=== PATIENT | male | born 1985 | race Caucasian/White ===

== ENCOUNTER 2017-02-15 10:19 | Emergency (ER) | payer OTHER ==
[~2017-02-15] VITALS: Ht 175.3 cm; Wt 77.0 kg
[~2017-02-15 10:19] MED LIST: IBUP800T23 PO; SUBO8MIS SL
[2017-02-15 10:20] VITALS: BP 120/72; PULSE 92; RESP 18; TEMP 97.4; O2SAT 94
[2017-02-15] MEDS ORDERED: SUBO8MIS SL (10:33)
--- NOTE | 2017-02-15 10:47 | PD ---
HPI Chief Complaint: Cold / Flu Symptoms Time Seen by Provider: 10:44 Travel History International Travel<30 days: No Contact w/Intl Traveler<30days: No Traveled to known affect area: No History of Present Illness HPI Patient is a 31-year-old male presenting to emergency for evaluation of cough, sore throat, nasal and chest congestion. Patient states his symptoms started a week ago, he reports a fever several days ago but none since. He denies any nausea, vomiting, abdominal pain, chest pain, headaches. Patient states his cough is productive, he is coughing up clear to yellow sputum. Patient endorses daily tobacco use, he denies any history of asthma. He has no other complaints at this time. 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) Allergies-Medications (Allergen,Severity, Reaction): Coded Allergies: No Known Allergies (Unverified , 11/23/15) Reported Meds & Prescriptions Reported Meds & Active Scripts Active Reported Suboxone Sublingual Film (Buprenorphine-Naloxone Sublingual Film) 8-2 Mg Film 1 Film SL Unique ID number required: Review of Systems Except as stated in HPI: all other systems reviewed are Neg General / Constitutional: No: Fever, Chills HENT: Positive: Sore Throat, Rhinitis, Congestion Cardiovascular: No: Chest Pain or Discomfort Respiratory: Positive: Cough, Wheezing, No: Shortness of Breath Gastrointestinal: No: Nausea, Vomiting, Abdominal Pain Musculoskeletal: No: Myalgias Physical Exam Narrative GENERAL: Well-nourished, well-developed patient. SKIN: Warm and dry. HEAD: Normocephalic. EYES: No scleral icterus. No injection or drainage. ENT: Mucosa pink and moist. No erythema or exudates. No uvular edema. No uvular , palatal, or tonsillar deviation. Airway patent. Nasal turbinates appear normal without nasal blood, purulent drainage or septal hematoma. Cobblestone appearance to posterior pharynx. NECK: Supple, trachea midline. No JVD or lymphadenopathy. CARDIOVASCULAR: Regular rate and rhythm without murmurs, gallops, or rubs. RESPIRATORY: Breath sounds equal bilaterally. Coarse breath sounds in bases, with scattered expiratory wheezing. No increased work of breathing, no nasal flaring, no retractions. GASTROINTESTINAL: Abdomen soft, non-tender, nondistended. MUSCULOSKELETAL: No cyanosis, or edema. BACK: Nontender without obvious deformity. No CVA tenderness. Data Data Last Documented VS Vital Signs Date Time Temp Pulse Resp B/P Pulse Ox O2 Delivery O2 Flow Rate FiO2 02/15/17 10:20 97.4 92 18 120/72 94 Room Air Orders Chest, Single Ap (02/15/17 10:43) Albuterol-Ipratropium Neb (Duoneb Neb) (02/15/17 10:45) Methylprednisolone So Succ Inj (Solumedr (02/15/17 11:00) MDM Medical Decision Making Medical Screen Exam Complete: Yes Emergency Medical Condition: Yes Interpretation(s) Last Impressions Chest X-Ray 02/15/17 1043 Signed Impressions: Service Date/Time: Wednesday, February 15, 2017 10:50 - CONCLUSION: No acute cardiopulmonary process. Nash Nation MD Vital Signs Date Time Temp Pulse Resp B/P Pulse Ox O2 Delivery O2 Flow Rate FiO2 02/15/17 10:20 97.4 92 18 120/72 94 Room Air Differential Diagnosis Pneumonia versus bronchitis versus viral URI versus other Narrative Course Patient is a 31-year-old male presenting to emergency for evaluation of cough, chest congestion, nasal congestion, sore throat for the last week. Patient is a daily tobacco user. Imaging and nebulizers ordered and pending. Chest x-ray shows no acute disease patient reports improvement after duo nebs 3. Patient was advised to avoid further tobacco use. He was given prescriptions for Ventolin inhaler, steroids, antibiotics. He was encouraged to return to emergency department for any new or worsening symptoms. Additionally he was advised to follow-up with his primary care provider. Patient verbalized understanding of these instructions. Patient is stable for discharge. Diagnosis Primary Impression: Bronchitis, acute Qualified Code: J20.9 - Acute bronchitis, unspecified organism Referrals: Primary Care Physician Patient Instructions: Acute Bronchitis (ED), General Instructions Additional Instructions: Follow-up with a primary care doctor Return to emergency department for any new or worsening symptoms Take medications as directed Avoid smoking Med/Other Pt SpecificInfo: Prescription(s) given Scripts Prednisone 20 Mg Tab40 Mg PO DAILY 7 Days Ref 0 Take 40 mg (2 tablets) daily for 5 days Prov:Melisa Haney 02/15/17 Albuterol 18 GM Inh (Ventolin Hfa 18 GM Inh)90 Mcg/Act Aer2 Puff INH Q4-6H PRN ( SHORTNESS OF BREATH) #1 INHALER Ref 0 Prov:Melisa Haney 02/15/17 Azithromycin 250 Mg [id number] Mg PO DIRECTED #6 TAB Ref 0 Take 2 tabs (500 mg) on day 1 then 1 tab daily x 4 days. Prov:Melisa Haney 02/15/17 Disposition: 01 DISCHARGE HOME Condition: Stable Melisa Haney Feb 15, 2017 10:47
[2017-02-15] MEDS ORDERED: methylPREDNISolone SOD SUCC 125 MG/2 ML VIAL IM ONE (11:00)
[2017-02-15] MEDS: RESP: ALBUTEROL 2.5 MG/IPRATROPIUM 0.5 MG NEB (SCH) INH (11:12)
--- NOTE | 2017-02-15 11:18 | RADRPT ---
EXAM DATE/TIME: 02/15/2017 10:50 [facility] COMPARISON: No previous studies available for comparison. INDICATIONS : Patient has had a productive cough for a week. MEDICAL HISTORY : None. SURGICAL HISTORY : None. ENCOUNTER: Initial ACUITY: 1 week PAIN SCORE: 0/10 LOCATION: Bilateral chest FINDINGS: A single view of the chest demonstrates the lungs to be symmetrically aerated without evidence of mas s, infiltrate or effusion. The cardiomediastinal contours are unremarkable. Osseous structures are intact. CONCLUSION: No acute cardiopulmonary process. Nash Nation MD on February 15, 2017 at 11:16 Board Certified Radiologist. This report was verified electronically.
[2017-02-15 12:06] VITALS: O2SAT 95
[2017-02-15] MEDS ORDERED: PRED20 PO (12:10)
[2017-02-15] MEDS ORDERED: AZIT250T3 PO (12:10)
[2017-02-15] MEDS ORDERED: VENTAER INH (12:10)
== END 2017-02-15 12:22 | disposition home or self-care (01) ==
LOC: NEPB 10:19
DX: J20.9 Acute bronchitis, unspecified (principal); F17.210 Nicotine dependence, cigarettes, uncomplicated
CPT/HCPCS: 71010; 94664; 96372; 99283; J2930

== ENCOUNTER 2018-02-28 06:13 | Inpatient (IN) | payer SELFPAY ==
[2018-02-28] VITALS (11 sets, daily range): BP systolic 106–131; BP diastolic 60–80; PULSE 75–114; RESP 15–23; TEMP 97.2–99.8; O2SAT 96–100
[~2018-02-28] VITALS: Ht 175.3 cm; Wt 75.0 kg
[~2018-02-28 06:13] MED LIST changes: +AZIT250T3 PO; -IBUP800T23 PO; +PRED20 PO; +VENTAER INH
[2018-02-28] MEDS ORDERED: SODIUM CHLOR 0.9% 1000 ML INJ 1,000 ML IV ONE ×2 (06:48)
[2018-02-28] MEDS ORDERED: SODIUM CHLOR 0.9% 1000 ML INJ 400 ML IV ONE (06:48)
[2018-02-28] MEDS ORDERED: PIPERACIL-TAZO 3.375 GM PREMIX 50 ML IV ONE (07:00)
[2018-02-28] MEDS ORDERED: VANCOMYCIN INJ 1,000 MG in SODIUM CHLOR 0.9% 250 ML INJ 250 ML IV ONE (07:00)
--- NOTE | 2018-02-28 07:00 | PD ---
HPI Chief Complaint: Skin Problem Time Seen by Provider: 06:34 Travel History International Travel<30 days: No Contact w/Intl Traveler<30days: No Traveled to known affect area: No History of Present Illness HPI The patient is a 32 year old male who presents to the [facility] emergency department with a history of left arm swelling that began that began 2-3 days ago. The patient reports that he last injected IV heroin in the left arm approximately 3-4 days ago. He reports that he last used heroin in the right arm at 2 AM today. The patient reports that he has had a subjective fever, chills, however no nausea, vomiting, or diarrhea. His last bowel movement was yesterday. He reports that he has a history of hepatitis C, however he denies any prior history of endocarditis. The patient denies having any chest pain, chest pressure, or shortness of breath. The patient reports that he has also used cocaine in the past, however infrequently. On review of systems otherwise , the patient denies having any cough or congestion, neck pain, abdominal pain, vomiting, diarrhea, urinary symptoms, or neurologic symptoms. The patient arrives drowsy on examination, having difficulty staying awake to answer questions. [facility] Past Medical History Narrative Medical The patient's past medical history is significant for IV heroin use, history of hepatitis C. Cancer: No Cardiovascular Problems: No Endocrine: No Gastrointestinal Disorders: No Genitourinary: No Medical other: Yes (HEP C ) Musculoskeletal: No Neurologic: No Psychiatric: No Respiratory: No Past Surgical History Narrative Surgical The patient's past surgical history is significant for right hand surgery related to middle finger injury in childhood. Other Surgery: No Social History Alcohol Use: No Tobacco Use: Yes (1 pack per day) Substance Use: Yes (IV heroin, history of cocaine use) Allergies-Medications (Allergen,Severity, Reaction): Coded Allergies: No Known Allergies (Unverified Adverse Reaction, Unknown, 02/28/18) Reported Meds & Prescriptions Reported Meds & Active Scripts Active No Active Prescriptions or Reported Medications Review of Systems Except as stated in HPI: all other systems reviewed are Neg General / Constitutional: Positive: Fever, Chills Eyes: No: Visual changes HENT: No: Headaches Cardiovascular: No: Chest Pain or Discomfort, Dyspnea on exertion Respiratory: No: Shortness of Breath Gastrointestinal: No: Nausea, Vomiting, Diarrhea, Abdominal Pain Genitourinary: No: Dysuria Musculoskeletal: No: Pain Skin: Positive Rash Neurologic: Positive: Weakness (Generalized weak), No: Focal Abnormalities, Change in Mentation, Slurred Speech, Sensory Disturbance Psychiatric: No: Depression Endocrine: No: Polydipsia Hematologic/Lymphatic: No: Easy Bruising Physical Exam Narrative General: The patient is a well-developed well-nourished male, drowsy on examination although easily awakened. Head and Neck exam: Head is normocephalic atraumatic. Eyes: EOMI, pupils are equal round and reactive to light. Nose: Midline septum with pink mucous membranes Mouth: Dentition unremarkable. Moist mucus membranes. Posterior oropharynx is not erythematous. No tonsillar hypertrophy. Uvula midline. Airway patent. Neck: No palpable lymphadenopathy. No nuchal rigidity. No thyromegaly. Cardiovascular: Sinus tachycardia in the 1 teens without murmurs, gallops, or rubs. No pulse deficit to the extremities on simultaneous auscultation and palpation of his radial artery. Lungs: Clear to auscultation bilaterally. No wheezes, rhonchi, or rales. Abdomen: Soft, without tenderness to palpation in all 4 quadrants of the abdomen. No guarding, rebound, or rigidity. Normal bowel sounds are audible. No tenderness on palpation of McBurney's point. Negative Rodriguez sign. Extremities: No clubbing, cyanosis, or edema, except in the area of interest, the left upper extremity where the patient has significant edema compared to the right with erythema most prominent along the lateral aspect of the arm above the elbow with a weeping area over the middle aspect of the lateral portion of the arm. A wound culture was ordered. There is a significant amount of induration over the musculature of the lateral arm, however the compartments do remain soft. The patient has left axillary lymphadenopathy noted. 2+ pulses in all 4 extremities. The patient has full range of motion with flexion and extension of the wrist. The patient has full range of motion of his fingers with intact sensation over all fingertips. Back: No spinous process tenderness to palpation. No costovertebral angle tenderness to palpation. Neurologic Exam: Cranial nerves 2-12 were intact on exam. Strength is 5/5 in all 4 extremities. No sensory deficits noted. Drowsy on examination. The patient frequently falls asleep while answering questions, however otherwise neurologically intact. Skin Exam: The patient is noted to have track aponte over bilateral upper extremities. Intact skin that is warm and dry. Data Data Last Documented VS Vital Signs Date Time Temp Pulse Resp B/P (MAP) Pulse Ox O2 Delivery O2 Flow Rate FiO2 02/28/18 06:13 99.6 114 18 129/73 (91) 98 Orders Orders Electrocardiogram (02/28/18 06:48) Complete Blood Count With Diff (02/28/18 06:48) Comprehensive Metabolic Panel (02/28/18 06:48) Creatine Kinase (Cpk) (02/28/18 06:48) Ckmb (Isoenzyme) Profile (02/28/18 06:48) Troponin I (02/28/18 06:48) Prothrombin Time / Inr (Pt) (02/28/18 06:48) Act Partial Throm Time (Ptt) (02/28/18 06:48) Blood Culture (02/28/18 06:48) Urinalysis - C+S If Indicated (02/28/18 06:48) Westergren Sedimentation Rate (02/28/18 06:48) Magnesium (Mg) (02/28/18 06:48) Chest, Single Ap (02/28/18 06:48) Iv Access Insert/Monitor (02/28/18 06:48) Ecg Monitoring (02/28/18 06:48) Oximetry (02/28/18 06:48) Lactic Acid Sepsis Protocol (02/28/18 06:48) Us Soft Tissue (02/28/18 ) Sodium Chlor 0.9% 1000 Ml Inj (Ns 1000 M (02/28/18 06:48) Sodium Chlor 0.9% 1000 Ml Inj (Ns 1000 M (02/28/18 06:48) Sodium Chlor 0.9% 1000 Ml Inj (Ns 1000 M (02/28/18 06:48) Piperacil-Tazo 3.375 Gm Premix (Zosyn 3. (02/28/18 07:00) Vancomycin Inj (Vancomycin Inj) (02/28/18 07:00) MDM Medical Decision Making Medical Screen Exam Complete: Yes Emergency Medical Condition: Yes Medical Record Reviewed: Yes Differential Diagnosis Cellulitis, versus myositis, versus rhabdomyolysis, versus abscess, versus sepsis Narrative Course During the course of the patient's emergency department visit, the patient's history, examination, and differential diagnosis were reviewed with the patient. The patient was placed on a financial planning assistant with oximetry and frequent blood pressure monitoring. The patient had IV access obtained and blood work sent for analysis. The patient had blood cultures 2 ordered, lactic acid per sepsis protocol was ordered. The patient appears septic on examination, therefore the patient was started on 30 mL/kg IV fluid bolus. The patient will be given vancomycin 1 g IV, Zosyn 3.375 g IV. The patient's laboratory studies and imaging studies are pending at the conclusion of my shift. The patient's case will be checked out to the oncoming emergency physician to disposition the patient based on the conclusion of his workup. The patient will clearly need to be admitted to the hospital for continued IV antibiotic and incision and drainage of a large abscess involving the left lateral arm. Sepsis Criteria SIRS Criteria (2 or more): Heart rate over 90 Sepsis Criteria (SIRS+source): Infect source susp/known Diagnosis Primary Impression: Cellulitis Qualified Codes: L03.114 - Cellulitis of left upper limb Scripts No Active Prescriptions or Reported Meds Liseth Ramesh MD Feb 28, 2018 07:00
[2018-02-28 07:19] LABS: AUTOMATED NEUTROPHIL # 9.5 TH/MM3 (1.8-7.7); BASOPHIL # 0.1 TH/MM3 (0-0.2); BASOPHIL % 0.5 % (0.0-2.0); EOSINOPHIL # 0.2 TH/MM3 (0-0.4); EOSINOPHIL % 1.8 % (0.0-4.0); HEMATOCRIT 36.6 % (39.0-51.0); HEMOGLOBIN 12.8 GM/DL (13.0-17.0); LYMPH % 16.7 % (9.0-44.0); LYMPHOCYTE # 2.2 TH/MM3 (1.0-4.8); MEAN CELL VOLUME 86.2 FL (80.0-100.0); MEAN CORPUSCULAR HEMOGLOBIN 30.1 PG (27.0-34.0); MEAN CORPUSCULAR HGB CONC 34.9 % (32.0-36.0); MEAN PLATELET VOLUME 7.3 FL (7.0-11.0); MONO % 7.9 % (0.0-8.0); NEUT % 73.1 % (16.0-70.0); PLATELET COUNT 192 TH/MM3 (150-450); RED BLOOD COUNT 4.24 MIL/MM3 (4.50-5.90); RED CELL DISTRIBUTION WIDTH 13.1 % (11.6-17.2)
--- NOTE | 2018-02-28 07:24 | RADRPT ---
EXAM DATE/TIME: 02/28/2018 07:12 [facility] COMPARISON: CHEST SINGLE AP, February 15, 2017, 10:50. INDICATIONS : Palpitations. MEDICAL HISTORY : None. SURGICAL HISTORY : None. ENCOUNTER: Initial ACUITY: 2 days PAIN SCORE: 0/10 LOCATION: Bilateral chest FINDINGS: Low lung volumes which accentuate interstitial markings. No significant focal pleural or parenchymal opacities. Cardiomediastinal contours are within normal limits given technique. Remainder of the exam is unchanged. CONCLUSION: 1. No acute abnormality or significant interval change. Calixto Plascencia MD on February 28, 2018 at 7:21 Board Certified Radiologist. This report was verified electronically.
[2018-02-28 07:27] LABS: INTERNATIONAL NORMALIZED RATIO 1.1 RATIO; PROTHROMBIN TIME - PATIENT 11.2 SEC (9.8-11.6)
[2018-02-28 07:49] LABS: ALBUMIN 3.2 GM/DL (3.4-5.0); AST (GOT) 61 U/L (15-37); BICARBONATE 28.7 MEQ/L (21.0-32.0); BLOOD UREA NITROGEN 9 MG/DL (7-18); CALCIUM 8.6 MG/DL (8.5-10.1); CHLORIDE 97 MEQ/L (98-107); CREATININE 1.03 MG/DL (0.60-1.30); GLOMERULAR FILTRATION RATE 84 ML/MIN (>89); GLUCOSE,RANDOM 83 MG/DL (74-106); MAGNESIUM 1.9 MG/DL (1.5-2.5); SODIUM (NA) 134 MEQ/L (136-145)
[2018-02-28 07:50] LABS: ALT (GPT) 84 U/L (12-78)
[2018-02-28 07:53] LABS: ALKALINE PHOSPHATASE 147 U/L (45-117); TOTAL BILIRUBIN ADULT 0.7 MG/DL (0.2-1.0); TOTAL PROTEIN 8.7 GM/DL (6.4-8.2); TROPONIN I LESS THAN 0.02 NG/ML (0.02-0.05)
--- NOTE | 2018-02-28 08:48 | RADRPT ---
EXAM DATE/TIME: 02/28/2018 07:49 [facility] COMPARISON: No previous studies available for comparison. INDICATIONS : Abscess in left arm. MEDICAL HISTORY : Hepatitis C. IV heroin use. SURGICAL HISTORY : Right hand surgery. ENCOUNTER: Initial ACUITY: 1 day PAIN SCORE: Nonresponsive. LOCATION: Left arm. AREA EVALUATED: Left lateral mid humerus. FINDINGS: MASSES: None. FLUID COLLECTIONS: There is a complex subcutaneous fluid collection in the left lateral mid humerus region measuring 4.2 x 3.8 x 3.9 cm. OTHER: Negative. CONCLUSION: 1. 4.2 x 3.8 x 3.9 cm subcutaneous abscess in the left lateral mid humerus. 1. Calixto Plascencia MD on February 28, 2018 at 8:31 Board Certified Radiologist. This report was verified electronically.
--- NOTE | 2018-02-28 10:12 | PD ---
Physical Exam Narrative Patient signed out to me by Dr. Ramesh. Please see her documentation for complete details. Briefly, patient is a 32 year old male who comes in with a large abscess and large surrounding cellulitis after injecting heroine into his arm. Exam shows large swelling to he left upper extremity with large area of fluctuance. Data Data Last Documented VS Vital Signs Date Time Temp Pulse Resp B/P (MAP) Pulse Ox O2 Delivery O2 Flow Rate FiO2 02/28/18 09:23 99.1 75 15 106/67 (80) 99 Room Air Orders Orders Electrocardiogram (02/28/18 06:48) Complete Blood Count With Diff (02/28/18 06:48) Comprehensive Metabolic Panel (02/28/18 06:48) Creatine Kinase (Cpk) (02/28/18 06:48) Ckmb (Isoenzyme) Profile (02/28/18 06:48) Troponin I (02/28/18 06:48) Prothrombin Time / Inr (Pt) (02/28/18 06:48) Act Partial Throm Time (Ptt) (02/28/18 06:48) Blood Culture (02/28/18 06:48) Urinalysis - C+S If Indicated (02/28/18 06:48) Westergren Sedimentation Rate (02/28/18 06:48) Magnesium (Mg) (02/28/18 06:48) Chest, Single Ap (02/28/18 06:48) Iv Access Insert/Monitor (02/28/18 06:48) Ecg Monitoring (02/28/18 06:48) Oximetry (02/28/18 06:48) Lactic Acid Sepsis Protocol (02/28/18 06:48) Us Soft Tissue (02/28/18 ) Sodium Chlor 0.9% 1000 Ml Inj (Ns 1000 M (02/28/18 06:48) Sodium Chlor 0.9% 1000 Ml Inj (Ns 1000 M (02/28/18 06:48) Sodium Chlor 0.9% 1000 Ml Inj (Ns 1000 M (02/28/18 06:48) Piperacil-Tazo 3.375 Gm Premix (Zosyn 3. (02/28/18 07:00) Vancomycin Inj (Vancomycin Inj) (02/28/18 07:00) Wound Culture And Gram Stain (02/28/18 06:57) CKMB (02/28/18 07:05) CKMB% (02/28/18 07:05) Admit Order (Ed Use Only) (02/28/18 ) Labs Laboratory Tests Test 02/28/18 07:05 White Blood Count 13.0 TH/MM3 Red Blood Count 4.24 MIL/MM3 Hemoglobin 12.8 GM/DL Hematocrit 36.6 % Mean Corpuscular Volume 86.2 FL Mean Corpuscular Hemoglobin 30.1 PG Mean Corpuscular Hemoglobin Concent 34.9 % Red Cell Distribution Width 13.1 % Platelet Count 192 TH/MM3 Mean Platelet Volume 7.3 FL Neutrophils (%) (Auto) 73.1 % Lymphocytes (%) (Auto) 16.7 % Monocytes (%) (Auto) 7.9 % Eosinophils (%) (Auto) 1.8 % Basophils (%) (Auto) 0.5 % Neutrophils # (Auto) 9.5 TH/MM3 Lymphocytes # (Auto) 2.2 TH/MM3 Monocytes # (Auto) 1.0 TH/MM3 Eosinophils # (Auto) 0.2 TH/MM3 Basophils # (Auto) 0.1 TH/MM3 CBC Comment DIFF FINAL Differential Comment Erythrocyte Sedimentation Rate 63 mm/hr Prothrombin Time 11.2 SEC Prothromb Time International Ratio 1.1 RATIO Activated Partial Thromboplast Time 31.0 SEC Blood Urea Nitrogen 9 MG/DL Creatinine 1.03 MG/DL Random Glucose 83 MG/DL Total Protein 8.7 GM/DL Albumin 3.2 GM/DL Calcium Level 8.6 MG/DL Magnesium Level 1.9 MG/DL Alkaline Phosphatase 147 U/L Aspartate Amino Transf (AST/SGOT) 61 U/L Alanine Aminotransferase (ALT/SGPT) 84 U/L Total Bilirubin 0.7 MG/DL Sodium Level 134 MEQ/L Potassium Level 3.4 MEQ/L Chloride Level 97 MEQ/L Carbon Dioxide Level 28.7 MEQ/L Anion Gap 8 MEQ/L Estimat Glomerular Filtration Rate 84 ML/MIN Lactic Acid Level 1.6 mmol/L Total Creatine Kinase 263 U/L Creatine Kinase MB LESS THAN 0.5 NG/ML Troponin I LESS THAN 0.02 NG/ML MDM Supervised Visit with NADER: No Narrative Course US shows a large abscess that will need to be drained surgically. Patient given antibiotics and admitted for further management. Diagnosis Primary Impression: Cellulitis Qualified Codes: L03.114 - Cellulitis of left upper limb Admitting Information Admitting Physician Requests: Admit Scripts No Active Prescriptions or Reported Meds Mavis Kate MD Feb 28, 2018 10:12
--- NOTE | 2018-02-28 10:26 | HHI.HP ---
HPI Service Family Medicine Primary Care Physician No Primary Care Physician Admission Diagnosis abscess, cellulitis Diagnoses: International Travel<30 Days: No Contact w/Intl Traveler<30days: No Known Affected Area: No History of Present Illness Mr. Hsu is a 32-year-old white male with a past medical history of IV drug abuse and hepatitis C that presented to the ED for a left arm abscess. He stated that he injected heroin into his left arm 2 days ago and an abscess "popped up." He stated that he could not take the pain anymore so he is friend dropped him off at the hospital. Patient was intoxicated so was unable to get a full history. He stated that he last used heroin last night and injected into his right arm. He stated that he has had abscesses in the past. Denies history of endocarditis or lung infection. Has had fevers and chills over the past few days. He has also felt weak. He also admitted to using methamphetamine for the past 4 days and has been without sleep for the same amount of time. (Tatianna Porter MD R1) Review of Systems ROS Limitations: Intoxication Constitutional: COMPLAINS OF: Fever, Chills Respiratory: DENIES: Shortness of breath Cardiovascular: COMPLAINS OF: Chest pain (top left) (Tatianna Porter MD R1) Past Family Social History Past Medical History Hepatitis C- diagnosed 10 years ago Does not have a PCP Past Surgical History none (Tatianna Porter MD R1) Allergies: Coded Allergies: No Known Allergies (Unverified Adverse Reaction, Unknown, 02/28/18) Family History father- healthy mother- healthy Social History Lives in a motel Unemployed No alcohol, smokes ppd Admits to using heroin and methamphetamine (Tatianna Porter MD R1) Physical Exam Vital Signs Vital Signs Date Time Temp Pulse Resp B/P (MAP) Pulse Ox O2 Delivery O2 Flow Rate FiO2 02/28/18 09:23 99.1 75 15 106/67 (80) 99 Room Air 02/28/18 07:22 99.8 85 18 114/70 (85) 100 Room Air 02/28/18 07:18 17 98 Room Air 02/28/18 06:45 99.3 114 23 131/77 (95) 98 02/28/18 06:13 99.6 114 18 129/73 (91) 98 Physical Exam GENERAL: This is a well-nourished, well-developed patient lying on bed drowsy, in no apparent distress. SKIN: Left upper lateral arm showed large area of erythema and warmth. Erythema extended from apex of shoulder down to the elbow. Area was demarcated with a marker. An area of fluctuance of about 3 x 3 cm draining serous fluid was noted at the area of the deltoid. The area was also indurated. HEAD: Atraumatic. Normocephalic. EYES: Extraocular motions intact. No scleral icterus. No injection or drainage. ENT: Nose without bleeding, purulent drainage or septal hematoma. Airway patent. NECK: Trachea midline. No JVD or lymphadenopathy. Supple. CARDIOVASCULAR: Regular rate and rhythm without murmurs, gallops, or rubs. RESPIRATORY: Clear to auscultation. Breath sounds equal bilaterally. No wheezes , rales, or rhonchi. GASTROINTESTINAL: Abdomen soft, non-tender, nondistended. No hepato-splenomegaly , or palpable masses. No guarding. MUSCULOSKELETAL: Extremities without clubbing, cyanosis, or edema. No joint tenderness, effusion, or edema noted. No calf tenderness. NEUROLOGICAL: Awake and alert. Motor and sensory grossly within normal limits. Slurred speech. Laboratory Laboratory Tests Test 02/28/18 07:05 White Blood Count 13.0 Red Blood Count 4.24 Hemoglobin 12.8 Hematocrit 36.6 Mean Corpuscular Volume 86.2 Mean Corpuscular Hemoglobin 30.1 Mean Corpuscular Hemoglobin Concent 34.9 Red Cell Distribution Width 13.1 Platelet Count 192 Mean Platelet Volume 7.3 Neutrophils (%) (Auto) 73.1 Lymphocytes (%) (Auto) 16.7 Monocytes (%) (Auto) 7.9 Eosinophils (%) (Auto) 1.8 Basophils (%) (Auto) 0.5 Neutrophils # (Auto) 9.5 Lymphocytes # (Auto) 2.2 Monocytes # (Auto) 1.0 Eosinophils # (Auto) 0.2 Basophils # (Auto) 0.1 CBC Comment DIFF FINAL Differential Comment Erythrocyte Sedimentation Rate 63 Prothrombin Time 11.2 Prothromb Time International Ratio 1.1 Activated Partial Thromboplast Time 31.0 Blood Urea Nitrogen 9 Creatinine 1.03 Random Glucose 83 Total Protein 8.7 Albumin 3.2 Calcium Level 8.6 Magnesium Level 1.9 Alkaline Phosphatase 147 Aspartate Amino Transf (AST/SGOT) 61 Alanine Aminotransferase (ALT/SGPT) 84 Total Bilirubin 0.7 Sodium Level 134 Potassium Level 3.4 Chloride Level 97 Carbon Dioxide Level 28.7 Anion Gap 8 Estimat Glomerular Filtration Rate 84 Lactic Acid Level 1.6 Total Creatine Kinase 263 Creatine Kinase MB LESS THAN 0.5 Troponin I LESS THAN 0.02 Date/Time Source Procedure Growth Status 02/28/18 06:57 Blood Peripheral Aerobic Blood Culture Pending Received 02/28/18 06:57 Blood Peripheral Anaerobic Blood Culture Pending Received 02/28/18 06:57 Wound Arm Gram Stain Pending Received 02/28/18 06:57 Wound Arm Wound Culture Pending Received (Tatianna Porter MD R1) Result Diagram: 02/28/18 0705 02/28/18 0705 Imaging Last Impressions Chest X-Ray 02/28/18 0648 Signed Impressions: Service Date/Time: Wednesday, February 28, 2018 07:12 - CONCLUSION: 1. No acute abnormality or significant interval change. Calixto Plascencia MD Soft Tissue Ultrasound 02/28/18 0000 Signed Impressions: Service Date/Time: Wednesday, February 28, 2018 07:49 - CONCLUSION: 1. 4.2 x 3.8 x 3.9 cm subcutaneous abscess in the left lateral mid humerus. 1. Calixto Plascencia MD (Tatianna Porter MD R1) Caprini VTE Risk Assessment Caprini VTE Risk Assessment: No/Low Risk (score <= 1) Caprini Risk Assessment Model Point Value = 1 Point Value = 2 Point Value = 3 Point Value = 5 Age 41-60 Minor surgery BMI > 25 kg/m2 Swollen legs Varicose veins or History of unexplained or recurrent spontaneous Oral contraceptives or hormone replacement Sepsis (< 1 month) Serious lung disease, including pneumonia (< 1 month) Abnormal pulmonary function Acute myocardial infarction Congestive heart failure (< 1 month) History of inflammatory bowel disease Medical patient at bed rest Age 61-74 Arthroscopic surgery Major open surgery (> 45 min) Laparoscopic surgery (> 45 min) Malignancy Confined to bed (> 72 hours) Immobilizing plaster cast Central venous access Age >= 75 History of VTE Family history of VTE Factor V Leiden Prothrombin [id number] Lupus anticoagulant Anticardiolipin antibodies Elevated serum homocysteine Heparin-induced thrombocytopenia Other congenital or acquired thrombophilia Stroke (< 1 month) Elective arthroplasty Hip, pelvis, or leg fracture Acute spinal cord injury (< 1 month) Prophylaxis Regimen Total Risk Factor Score Risk Level Prophylaxis Regimen 0-1 Low Early ambulation 2 Moderate Order ONE of the following: *Sequential Compression Device (SCD) *Heparin 5000 units SQ BID 3-4 Higher Order ONE of the following medications: *Heparin 5000 units SQ TID *Enoxaparin/Lovenox 40 mg SQ daily (WT < 150 kg, CrCl > 30 mL/min) *Enoxaparin/Lovenox 30 mg SQ daily (WT < 150 kg, CrCl > 10-29 mL/min) *Enoxaparin/Lovenox 30 mg SQ BID (WT < 150 kg, CrCl > 30 mL/min) AND/OR *Sequential Compression Device (SCD) 5 or more Highest Order ONE of the following medications: *Heparin 5000 units SQ TID (Preferred with Epidurals) *Enoxaparin/Lovenox 40 mg SQ daily (WT < 150 kg, CrCl > 30 mL/min) *Enoxaparin/Lovenox 30 mg SQ daily (WT < 150 kg, CrCl > 10-29 mL/min) *Enoxaparin/Lovenox 30 mg SQ BID (WT < 150 kg, CrCl > 30 mL/min) AND *Sequential Compression Device (SCD) (Tatianna Porter MD R1) Assessment and Plan Assessment and Plan 32-year-old white male with a past medical history of IV drug abuse and hepatitis C presenting with a left upper lateral arm abscess and cellulitis. He is being admitted to our inpatient service. Code Status Full code Discussed Condition With Drs. Camarena and Charles (Tatianna Porter MD R1) Attending Attestation Patient seen and examined. Case reviewed and discussed with the resident team. Agree with plan of care as discussed with me and documented in the resident note. pt seen on admission. agree with plan. discussed quitting drugs. he is considering this (Niecy Soto MD) Problem List: (1) Cellulitis of left arm ICD Codes: L03.114 - Cellulitis of left upper limb Status: Acute Plan: Patient with left upper lateral arm abscess of 2 days' duration after injecting heroin. Afebrile upon admission, but tachycardic to the 110s. Leukocytosis neutrophil predominate to 13.0. ESR elevated at 63. Soft tissue ultrasound on admission, 02/28, shows 4.2 x 3.8 x 3.9 cm subcutaneous abscess in the left lateral mid humerus. Wound culture pending Blood culture pending UDS positive for opiates, amphetamines, benzodiazepines, and cocaine Patient given a dose of vancomycin 1000 mg in the ED -Will continue vancomycin at 1500 mg every 12 hours IV Patient given a dose of Zosyn 3.375 g IV in the ED -Will continue Zosyn 3.375 g IV every 6 hours General surgery consult, appreciate recommendations -plan for OR tonight for I&D, debridement, and possible wound VAC -N.p.o. Wound care consulted and appreciate recommendations (2) Abscess of arm, left ICD Codes: L02.414 - Cutaneous abscess of left upper limb Status: Acute Plan: See above plan (3) Hepatitis C ICD Codes: B19.20 - Unspecified viral hepatitis C without hepatic coma Status: Chronic Plan: Patient admits to past medical history of hepatitis C. AST, ALT, alkaline phosphatase elevated upon admission, 02/28. Will continue to monitor (4) FEN Status: Acute Plan: Fluids: NS @ 100ml/hr Electrolytes: monitor and replete as needed Nutrition: N.p.o. DVT Prophylaxis: Early ambulation. Lovenox 40mg subQ q24hr GI Prophylaxis: None indicated at this time Pain management: She likely has a low pain tolerance due to IV drug abuse. Percocet 10-325 mg. Will adjust as needed (Tatianna Porter MD R1) Physician Certification 2 Midnight Certification Type: Admission for Inpatient Services Order for Inpatient Services The services are ordered in accordance with Medicare regulations or non- Medicare payer requirements, as applicable. In the case of services not specified as inpatient-only, they are appropriately provided as inpatient services in accordance with the 2-midnight benchmark. Estimated LOS (days): 3 days is the estimated time the patient will need to remain in the hospital, assuming treatment plan goals are met and no additional complications. Post-Hospital Plan: Home (Tatianna Porter MD R1) Problem Qualifiers (1) Hepatitis C: Qualified Codes: B19.20 - Unspecified viral hepatitis C without hepatic coma Tatianna Porter MD R1 Feb 28, 2018 10:26 Niecy Soto MD Mar 01, 2018 12:08
[2018-02-28] MEDS ORDERED: LIDOCAINE HCL 1% PF 30 ML VIAL ONE (10:41)
[2018-02-28] MEDS ORDERED: ACETAMINOPHEN 500 MG CPLT PO PRN (11:00)
[2018-02-28] MEDS ORDERED: Vancomycin Consult Pharmacy 1 EA OTHER SCH (11:00)
[2018-02-28] MEDS ORDERED: SODIUM CHLORIDE 0.9% FLUSH 10 ML FLUSH IV FLUSH PRN (11:00)
[2018-02-28] MEDS ORDERED: SUCCINYLCHOLINE CHLORIDE 200 MG/10 ML VIAL IV ONE (12:00)
[2018-02-28] MEDS ORDERED: PROPOFOL 200 MG/20 ML AMP IV ONE (12:00)
[2018-02-28] MEDS ORDERED: ONDANSETRON HCL 4 MG/2 ML VIAL IV ONE (12:00)
[2018-02-28] MEDS ORDERED: LIDOCAINE HCL 1% PF 5 ML SYRINGE OTHER ONE (12:00)
[2018-02-28] MEDS ORDERED: DEXAMETHASONE SOD PHOS 4 MG/ML VIAL IV ONE (12:00)
[2018-02-28] MEDS ORDERED: ROCURONIUM INJ 50 MG/5 ML SYRINGE IV PUSH ONE (12:00)
[2018-02-28 12:45] LABS: BILIRUBIN, URINE NEG (NEG); BLOOD, URINE NEG (NEG); GLUCOSE,URINE NEG (NEG); KETONE, URINE NEG (NEG); MUCUS URINE FEW /lpf (OCC); NITRITE,URINE NEG (NEG); PH, URINE 6.5 (5.0-8.5); URINE COLOR YELLOW (YELLW/STRAW); URINE LEUKOCYTE ESTERASE NEG (NEG)
[2018-02-28] MEDS: ENOXAPARIN SODIUM 40 MG/0.4 ML SYRINGE SQ SCH (14:19)
[2018-02-28] MEDS: PIPERACIL-TAZO 3.375 GM PREMIX 50 ML IV SCH ×2 (14:20→21:08)
[2018-02-28] MEDS: SODIUM CHLOR 0.9% 1000 ML INJ 1,000 ML IV SCH ×2 (14:20→21:08)
--- NOTE | 2018-02-28 14:41 | PD.WCN.NOT ---
Wound Consult Description: Wound consult ordered by Abrahan HIGH for left arm abscess Communicated with: Abrahan HIGH Recommendation: 1. Apply warm water cloth to Left upper extremity abscess to promote expression 2. Consult general surgeon for I&D 3. Reconsult wound care if needed. Additional Information: Patient was seen today by teletypewriter installer and Louisa RNWCC in E-pod.Patient alert and oriented x3 .Left upper extremity abscess erythema marked ,warm to touch.Wound care recommendation at this time would to consult general surgery for possible I &D.Patient verbalized that he would like abscess lanced and drained as soon as possible for discharge .Wound care team reinforced need to follow all orders for maximum healing. Fredo [facility] Feb 28, 2018 14:41
[2018-02-28] MEDS ORDERED: MORPHINE SULFATE 8 MG/ML INJ IV PUSH PRN (14:45)
[2018-02-28] MEDS ORDERED: oxyCODONE/ACETAMINOPHEN 10 MG/325 MG TAB PO PRN (14:45)
[2018-02-28] MEDS: VANCOMYCIN INJ 1,500 MG in SODIUM CHLORID 0.9% 500 ML INJ 500 ML IV SCH ×2 (16:02→17:35)
--- NOTE | 2018-02-28 16:09 | EKG ---
Date Performed: 02/28/2018 Time Performed: 07:02:30 PTAGE: 32 years EKG: SINUS TACHYCARDIA ABNORMAL RHYTHM ECG NO PREVIOUS TRACING DOCTOR: Rajan Gonzalez Interpretating Date/Time 02/28/2018 16:07:34
--- NOTE | 2018-02-28 17:02 | PD.CONS ---
cc: Jc Hernandez MD HPI Service General Surgery Consult Requested By Dr. Soto Reason for Consult LEFT upper arm abscess in need of Incision and drainage Primary Care Physician No Primary Care Physician History of Present Illness This is a 32 year old male with a past medical history of hepatitis C and IVDA who presents to the ED with complaints of LEFT arm swelling and pain. The patient does report subjective fevers and chills. He first noticed the LEFT arm area about 2-3 days ago. He has had minimal drainage from the area for the last few hours. He does have a mildly elevated WBC. He has an US of the LEFT arm which shows a 4.2 x 3.8 x 3.9 cm subcutaneous abscess. A General Surgery consultation has been requested. Review of Systems Constitutional: COMPLAINS OF: Fever, Chills Endocrine: DENIES: Polydipsia, Polyuria, Polyphagia Eyes: DENIES: Blurred vision, Diplopia Ears, nose, mouth, throat: DENIES: Hearing loss Respiratory: DENIES: Apneas Cardiovascular: DENIES: Chest pain Gastrointestinal: DENIES: Abdominal pain, Nausea, Vomiting Genitourinary: DENIES: Urinary frequency, Hematuria Musculoskeletal: COMPLAINS OF: Stiffness, DENIES: Joint pain Integumentary: DENIES: Abnormal pigmentation Hematologic/lymphatic: DENIES: Bruising Immunologic/allergic: DENIES: Eczema Neurologic: DENIES: Headache, Paresthesias Psychiatric: DENIES: Mood changes, Depression, Hallucinations Past Family Social History Past Medical History Hepatitis C IVDA Past Surgical History None Reported Medications None Allergies: Coded Allergies: No Known Allergies (Unverified Adverse Reaction, Unknown, 02/28/18) Active Ordered Medications Current Medications Medications (Trade) Dose Ordered Sig/Mp Route Start Time Stop Time Status Last Admin (NS Flush) 2 ml BID IV FLUSH 02/28/18 21:00 (NS Flush) 2 ml UNSCH PRN IV FLUSH 02/28/18 11:00 Sodium Chloride 1,000 ml @ 100 mls/hr Q10H IV 02/28/18 14:00 02/28/18 14:20 (Tylenol) 500 mg Q4H PRN PO 4/3/18 11:00 (Lovenox Inj) 40 mg Q24H SQ 02/28/18 14:00 02/28/18 14:19 Pharmacy Profile Note 0 ml @ 0 mls/hr UNSCH OTHER 02/28/18 11:00 Piperacillin Sod/ Tazobactam Sod 50 ml @ 100 mls/hr Q6H IV 02/28/18 14:00 02/28/18 14:20 Vancomycin HCl 1500 mg/Sodium Chloride 515 ml @ 250 mls/hr Q12H IV 02/28/18 16:00 02/28/18 16:02 Miscellaneous Information SPECIFIC LAB TO BE DRAWN:VANCOMYCIN TROUGH DATE TO... ONCE ONCE .XX 03/02/18 03:45 03/02/18 03:46 (Percocet 10-325 Mg) 1 tab Q4H PRN PO 02/28/18 14:45 (Morphine Inj) 6 mg Q4H PRN IV PUSH 02/28/18 14:45 Family History Noncontributory Social History + tobacco use---1 ppd Denies ETOH use + IVDA with cocaine and heroin Physical Exam Vital Signs Vital Signs Date Time Temp Pulse Resp B/P (MAP) Pulse Ox O2 Delivery O2 Flow Rate FiO2 02/28/18 16:00 98.2 98 17 130/77 (94) 99 02/28/18 13:45 97.8 89 16 121/80 (94) 98 Room Air 02/28/18 12:22 97.2 78 15 113/60 (77) 99 Room Air 02/28/18 09:23 99.1 75 15 106/67 (80) 99 Room Air 02/28/18 07:22 99.8 85 18 114/70 (85) 100 Room Air 02/28/18 07:18 17 98 Room Air 02/28/18 06:45 99.3 114 23 131/77 (95) 98 02/28/18 06:13 99.6 114 18 129/73 (91) 98 Physical Exam GENERAL: 32 year old male resting in bed in no acute distress. SKIN: LEFT upper arm--- large area of erythema; warm to touch; large area of induration; Wound Care has placed markings of wound perimeter HEAD: Atraumatic. Normocephalic. EYES: Pupils equal and round. No scleral icterus. No injection or drainage. ENT: No nasal bleeding or discharge. Mucous membranes pink and moist. NECK: Trachea midline. CARDIOVASCULAR: Regular rate and rhythm. RESPIRATORY: No accessory muscle use. Clear to auscultation. Breath sounds equal bilaterally. GASTROINTESTINAL: Abdomen soft, non-tender, nondistended. Hepatic and splenic margins not palpable. MUSCULOSKELETAL: Extremities without clubbing, cyanosis, or edema. No obvious deformities. NEUROLOGICAL: Awake and alert. No obvious cranial nerve deficits. Motor grossly within normal limits. Five out of 5 muscle strength in the arms and legs. Normal speech. PSYCHIATRIC: Appropriate mood and affect; insight and judgment normal. Laboratory Laboratory Tests Test 02/28/18 07:05 02/28/18 12:14 White Blood Count 13.0 Red Blood Count 4.24 Hemoglobin 12.8 Hematocrit 36.6 Mean Corpuscular Volume 86.2 Mean Corpuscular Hemoglobin 30.1 Mean Corpuscular Hemoglobin Concent 34.9 Red Cell Distribution Width 13.1 Platelet Count 192 Mean Platelet Volume 7.3 Neutrophils (%) (Auto) 73.1 Lymphocytes (%) (Auto) 16.7 Monocytes (%) (Auto) 7.9 Eosinophils (%) (Auto) 1.8 Basophils (%) (Auto) 0.5 Neutrophils # (Auto) 9.5 Lymphocytes # (Auto) 2.2 Monocytes # (Auto) 1.0 Eosinophils # (Auto) 0.2 Basophils # (Auto) 0.1 CBC Comment DIFF FINAL Differential Comment Erythrocyte Sedimentation Rate 63 Prothrombin Time 11.2 Prothromb Time International Ratio 1.1 Activated Partial Thromboplast Time 31.0 Blood Urea Nitrogen 9 Creatinine 1.03 Random Glucose 83 Total Protein 8.7 Albumin 3.2 Calcium Level 8.6 Magnesium Level 1.9 Alkaline Phosphatase 147 Aspartate Amino Transf (AST/SGOT) 61 Alanine Aminotransferase (ALT/SGPT) 84 Total Bilirubin 0.7 Sodium Level 134 Potassium Level 3.4 Chloride Level 97 Carbon Dioxide Level 28.7 Anion Gap 8 Estimat Glomerular Filtration Rate 84 Lactic Acid Level 1.6 Total Creatine Kinase 263 Creatine Kinase MB LESS THAN 0.5 Troponin I LESS THAN 0.02 Urine Color YELLOW Urine Turbidity CLEAR Urine pH 6.5 Urine Specific [place] 1.021 Urine Protein NEG Urine Glucose (UA) NEG Urine Ketones NEG Urine Occult Blood NEG Urine Nitrite NEG Urine Bilirubin NEG Urine Urobilinogen LESS THAN 2.0 Urine Leukocyte Esterase NEG Urine RBC 1 Urine WBC 1 Urine Mucus FEW Microscopic Urinalysis Comment CULT NOT INDICATED Urine Opiates Screen POS Urine Barbiturates Screen NEG Urine Amphetamines Screen POS Urine Benzodiazepines Screen POS Urine Cocaine Screen POS Urine Cannabinoids Screen NEG Date/Time Source Procedure Growth Status 02/28/18 06:57 Blood Peripheral Aerobic Blood Culture Pending Received 02/28/18 06:57 Blood Peripheral Anaerobic Blood Culture Pending Received 02/28/18 13:13 Wound Arm Gram Stain Pending Received 02/28/18 13:13 Wound Arm Wound Culture Pending Received Result Diagram: 02/28/18 0705 02/28/1805 Imaging Last 48 hours Impressions Chest X-Ray 02/28/18 0648 Signed Impressions: Service Date/Time: Wednesday, February 28, 2018 07:12 - CONCLUSION: 1. No acute abnormality or significant interval change. Calixto Plascencia MD Soft Tissue Ultrasound 02/28/18 0000 Signed Impressions: Service Date/Time: Wednesday, February 28, 2018 07:49 - CONCLUSION: 1. 4.2 x 3.8 x 3.9 cm subcutaneous abscess in the left lateral mid humerus. 1. Calixto Plascencia MD Assessment and Plan Assessment and Plan 32 year old male IVDA; LEFT upper arm abscess -Plan for OR this evening for I&D; debridement and possible Wound Vac change -Obtain consents -NPO -Discussed procedure including risks and benefits -We will continue to follow Discussed Condition With Dr. Mary Yoo [facility] Mr. Redman Attending Statement I personally evaluated this patient at his bedside room 1708. Upon my arrival the patient was laying in bed with his presumed girlfriend or significant other. He appeared comfortable. He was awake was alert and cooperative with the exam. He has extensive erythematous change of the left upper extremity with some induration and purulent infection coming to ahead in the upper left lateral arm. He is tender to touch and warm to touch. Findings of the imaging demonstrates a subcutaneous fluid collection consistent with abscess. Our recommendations have been discussed with the patient and his significant other in detail. I recommended he continue to be n.p.o. as he has had nothing to eat or drink after his lunch at 1:00 this afternoon. I recommended incision and drainage debridement and possible VAC dressing placement for this significant left upper extremity infection. The patient asked about long-term how will his arm will look and I explained to him that will he will have a scar and his wound will not be closed it will have to heal from the inside out. He appeared to understand and consented to proceeding with surgery. I marked his arm with my initials with a sharpie pen. I called the operating room and they indicated that they would plan on having him in the operating room at 8 PM for the above-mentioned plan surgery. General anesthesia is planned. The exam, history, and the medical decision-making described in the above note were completed with the assistance of the mid-level provider. I reviewed and agree with the findings presented. I attest that I had a [id number] encounter with the patient on the same day, and personally performed and documented my assessment and findings in the medical record. Renea Palacios/First Aida BROOKS Feb 28, 2018 17:02 Jc Hernandez MD Feb 28, 2018 18:04
[2018-02-28] MEDS ORDERED: LIDOCAINE 1%/EPINEPHrine 1:100,000 SOLN 30 ML VIAL ONE (18:21)
[2018-02-28] MEDS ORDERED: NEOMYCIN/POLYMYXIN 1 ML G.U. IRRIGANT ONE (18:23)
[2018-02-28] MEDS ORDERED: VANCOMYCIN INJ 1,500 MG in SODIUM CHLOR 0.9% 250 ML INJ 250 ML IV SCH (19:00)
[2018-02-28] MEDS ORDERED: DO NOT ADM ANY ANTICOAGULANT DRUGS PRN (20:37)
--- NOTE | 2018-02-28 20:40 | PD.OP ---
Jc Hernandez MD Operative Report Date of Surgery: Feb 28, 2018 Preoperative Diagnosis: Left upper extremity abscess with cellulitis Postoperative Diagnosis: Same Procedure: Incision and drainage debridement left upper extremity abscess, pulse lavage, with placement of VAC dressing Anesthesia: General Surgeon: Jc Hernandez Advance Seal Delivery System Maintainer(s): Ar Resident Surgeon: None Operation and Findings: The patient was identified as Jc Hsu taken to the operating room and placed in a supine position. Sequential compression device were placed on bilateral lower extremities. Following induction of adequate general endotracheal anesthesia the left upper extremity was prepped and draped in usual sterile fashion with Betadine. A timeout procedure was performed. Following completion timeout procedure everyone's satisfaction within the room the area of concern was addressed. A hemostat was placed into the area where small amount of purulent drainage was located. This allowed for identification of the abscess cavity. The skin was incised proximally and distally longitudinally along the left upper extremity. This allowed for release of a large amount of purulent drainage which was sent on culture swab for Gram stain culture and sensitivity. Skin laterally was overlying the abscess. This was excised with the scalpel. Hemostasis was controlled with electrocautery. Wound was pulse lavaged with 2-1/2 L of saline. Hemostasis was controlled with electrocautery and pressure. Once the wound was dry it was dressed with a third of a small VAC sponge and a VAC dressing was placed in a standard fashion. It is connected to the VAC machine. There was no evidence of leak. Pressure was at -125 mmHg. The patient tolerated the procedure well without apparent complication. Sponge needle and instrument counts were correct at the end of the case. Estimated blood loss less than 25 mL. Jc Hernandez MD Feb 28, 2018 20:40
[2018-02-28] MEDS ORDERED: Post-op Orders (for Pharmacy) XX ONE (20:45)
[2018-02-28] MEDS: SODIUM CHLORIDE 0.9% FLUSH 10 ML FLUSH IV FLUSH SCH (20:48)
[2018-03-01] VITALS: BP 121/72; PULSE 83; RESP 17; TEMP 97.5; O2SAT 97
[2018-03-01] MEDS: PIPERACIL-TAZO 3.375 GM PREMIX 50 ML IV SCH ×4 (01:48→19:42)
[2018-03-01] MEDS: VANCOMYCIN INJ 1,500 MG in SODIUM CHLORID 0.9% 500 ML INJ 500 ML IV SCH ×2 (01:51→15:54)
[2018-03-01 08:00] VITALS: BP 113/65; PULSE 58; RESP 18; TEMP 97.1; O2SAT 96
[2018-03-01 08:36] LABS: AUTOMATED NEUTROPHIL # 10.5 TH/MM3 (1.8-7.7); BASOPHIL % 0.3 % (0.0-2.0); HEMATOCRIT 34.7 % (39.0-51.0); LYMPH % 8.4 % (9.0-44.0); MEAN CELL VOLUME 86.6 FL (80.0-100.0); MEAN CORPUSCULAR HGB CONC 34.6 % (32.0-36.0); MONO % 3.2 % (0.0-8.0); MONOCYTE # 0.4 TH/MM3 (0-0.9); NEUT % 88.1 % (16.0-70.0); PLATELET COUNT 193 TH/MM3 (150-450); RED BLOOD COUNT 4.01 MIL/MM3 (4.50-5.90); RED CELL DISTRIBUTION WIDTH 12.9 % (11.6-17.2); WHITE BLOOD COUNT 11.9 TH/MM3 (4.0-11.0)
[2018-03-01] MEDS: SODIUM CHLORIDE 0.9% FLUSH 10 ML FLUSH IV FLUSH SCH ×2 (09:00→19:42)
[2018-03-01 09:08] LABS: ALT (GPT) 78 U/L (12-78)
[2018-03-01 09:10] LABS: ALBUMIN 2.9 GM/DL (3.4-5.0); ALKALINE PHOSPHATASE 147 U/L (45-117); AST (GOT) 60 U/L (15-37); BICARBONATE 24.7 MEQ/L (21.0-32.0); BLOOD UREA NITROGEN 9 MG/DL (7-18); CALCIUM 8.6 MG/DL (8.5-10.1); CHLORIDE 104 MEQ/L (98-107); CREATININE 1.04 MG/DL (0.60-1.30); GLOMERULAR FILTRATION RATE 83 ML/MIN (>89); GLUCOSE,RANDOM 144 MG/DL (74-106); SODIUM (NA) 137 MEQ/L (136-145); TOTAL BILIRUBIN ADULT 0.5 MG/DL (0.2-1.0); TOTAL PROTEIN 8.2 GM/DL (6.4-8.2)
--- NOTE | 2018-03-01 09:21 | HHI.HP ---
HPI Service Family Medicine Primary Care Physician No Primary Care Physician Admission Diagnosis abscess, cellulitis Diagnoses: (1) Cellulitis of left arm (2) Abscess of arm, left (3) Hepatitis C (4) FEN International Travel<30 Days: No Contact w/Intl Traveler<30days: No Known Affected Area: No History of Present Illness Mr. Hsu is a 32-year-old white male with a past medical history of IV drug abuse and hepatitis C that presented to the ED for a left arm abscess. He stated that he injected heroin into his left arm 2 day prior and an abscess "popped up." He stated that he could not take the pain anymore so his friend dropped him off at the hospital. Patient was intoxicated so was unable to get a full history. He stated that he uses heroin daily. He stated that he has had abscesses in the past. Denies history of endocarditis or lung infection. Has had fevers and chills over the past few days. He has also felt weak. He also admitted to using methamphetamine for the past 4 days and has been without sleep for the same amount of time. He had an I&D of his wound and has a wound vac now. This am his nurse reported multiple visitors. Our pt reported that he was going to use heroin as an inpatient. It was explained that this is unacceptable and he became angry and was cursing and yelling. He threatened to leave AMA. Review of Systems ROS Limitations: Intoxication, Poor Historian Respiratory: DENIES: Shortness of breath Cardiovascular: DENIES: Chest pain Gastrointestinal: DENIES: Abdominal pain Neurologic: DENIES: Abnormal gait, Poor Balance Other ROS Limitations: Intoxication Constitutional: COMPLAINS OF: Fever, Chills Respiratory: DENIES: Shortness of breath Cardiovascular: COMPLAINS OF: Chest pain (top left) Past Family Social History Past Medical History Hepatitis C- diagnosed 10 years ago Does not have a PCP He reported using Methadone and Suboxone Past Surgical History none Allergies: Coded Allergies: No Known Allergies (Unverified Adverse Reaction, Unknown, 02/28/18) Family History father- healthy mother- healthy Social History Lives in a motel Unemployed No alcohol, smokes ppd Admits to using heroin and methamphetamine was also positive for cocaine and benzos Physical Exam Vital Signs Vital Signs Date Time Temp Pulse Resp B/P (MAP) Pulse Ox O2 Delivery O2 Flow Rate FiO2 03/01/18 00:00 97.5 83 17 121/72 (88) 97 02/28/18 21:25 98.2 88 14 98 Nasal Cannula 2 02/28/18 21:15 94 16 131/96 (108) 98 Nasal Cannula 2 02/28/18 21:00 92 20 123/72 (89) 99 Nasal Cannula 2 02/28/18 20:45 90 18 116/67 (83) 100 Nasal Cannula 2 02/28/18 20:35 99.8 90 17 116/60 (78) 99 Nasal Cannula 2 02/28/18 20:00 99.4 106 17 125/76 (92) 96 02/28/18 17:26 98.1 99 18 118/63 (81) 97 02/28/18 16:00 98.2 98 17 130/77 (94) 99 02/28/18 13:45 97.8 89 16 121/80 (94) 98 Room Air 02/28/18 12:22 97.2 78 15 113/60 (77) 99 Room Air 02/28/18 09:23 99.1 75 15 106/67 (80) 99 Room Air Physical Exam GENERAL: This is a well-nourished, well-developed patient, in no apparent distress except when concerned about about not getting his heroine SKIN: No rashes, ecchymoses or lesions. Cool and dry. HEAD: Atraumatic. Normocephalic. EYES: Pupils equal round and reactive. Extraocular motions intact. No scleral icterus. No injection or drainage. ENT: Nose without bleeding, purulent drainage or septal hematoma. Throat without erythema, tonsillar hypertrophy or exudate. Uvula midline. Airway patent. NECK: Trachea midline. No JVD or lymphadenopathy. Supple, nontender, no meningeal signs. CARDIOVASCULAR: Regular rate and rhythm without murmurs, gallops, or rubs. RESPIRATORY: Clear to auscultation. Breath sounds equal bilaterally. No wheezes , rales, or rhonchi. GASTROINTESTINAL: Abdomen soft, non-tender, nondistended. No hepato-splenomegaly , or palpable masses. No guarding. MUSCULOSKELETAL: Extremities without clubbing, cyanosis, or edema. No joint tenderness, effusion, or edema noted. No calf tenderness. Negative Homans sign bilaterally. NEUROLOGICAL: Awake and alert. Cranial nerves II through XII intact. Motor and sensory grossly within normal limits. Five out of 5 muscle strength in all muscle groups. Normal speech. up ambulating well Laboratory Laboratory Tests Test 02/28/18 12:14 03/01/18 07:22 Urine Color YELLOW Urine Turbidity CLEAR Urine pH 6.5 Urine Specific [place] 1.021 Urine Protein NEG Urine Glucose (UA) NEG Urine Ketones NEG Urine Occult Blood NEG Urine Nitrite NEG Urine Bilirubin NEG Urine Urobilinogen LESS THAN 2.0 Urine Leukocyte Esterase NEG Urine RBC 1 Urine WBC 1 Urine Mucus FEW Microscopic Urinalysis Comment CULT NOT INDICATED Urine Opiates Screen POS Urine Barbiturates Screen NEG Urine Amphetamines Screen POS Urine Benzodiazepines Screen POS Urine Cocaine Screen POS Urine Cannabinoids Screen NEG White Blood Count 11.9 Red Blood Count 4.01 Hemoglobin 12.0 Hematocrit 34.7 Mean Corpuscular Volume 86.6 Mean Corpuscular Hemoglobin 30.0 Mean Corpuscular Hemoglobin Concent 34.6 Red Cell Distribution Width 12.9 Platelet Count 193 Mean Platelet Volume 8.0 Neutrophils (%) (Auto) 88.1 Lymphocytes (%) (Auto) 8.4 Monocytes (%) (Auto) 3.2 Eosinophils (%) (Auto) 0.0 Basophils (%) (Auto) 0.3 Neutrophils # (Auto) 10.5 Lymphocytes # (Auto) 1.0 Monocytes # (Auto) 0.4 Eosinophils # (Auto) 0.0 Basophils # (Auto) 0.0 CBC Comment DIFF FINAL Differential Comment Blood Urea Nitrogen 9 Creatinine 1.04 Random Glucose 144 Total Protein 8.2 Albumin 2.9 Calcium Level 8.6 Alkaline Phosphatase 147 Aspartate Amino Transf (AST/SGOT) 60 Alanine Aminotransferase (ALT/SGPT) 78 Total Bilirubin 0.5 Sodium Level 137 Potassium Level 4.0 Chloride Level 104 Carbon Dioxide Level 24.7 Anion Gap 8 Estimat Glomerular Filtration Rate 83 Date/Time Source Procedure Growth Status 02/28/18 06:57 Blood Peripheral Aerobic Blood Culture Pending Received 02/28/18 06:57 Blood Peripheral Anaerobic Blood Culture Pending Received 02/28/18 20:27 Wound Arm Gram Stain Pending Received 02/28/18 20:27 Wound Arm Wound Culture Pending Received Result Diagram: 03/01/18 0722 03/01/18 0722 Imaging Last Impressions Chest X-Ray 02/28/18 0648 Signed Impressions: Service Date/Time: Wednesday, February 28, 2018 07:12 - CONCLUSION: 1. No acute abnormality or significant interval change. Calixto Plascencia MD Soft Tissue Ultrasound 02/28/18 0000 Signed Impressions: Service Date/Time: Wednesday, February 28, 2018 07:49 - CONCLUSION: 1. 4.2 x 3.8 x 3.9 cm subcutaneous abscess in the left lateral mid humerus. 1. Calixto Plascencia MD Septic Shock Reassessment Septic shock perfusion: reassessment completed Caprini VTE Risk Assessment Caprini VTE Risk Assessment: No/Low Risk (score <= 1) Caprini Risk Assessment Model Point Value = 1 Point Value = 2 Point Value = 3 Point Value = 5 Age 41-60 Minor surgery BMI > 25 kg/m2 Swollen legs Varicose veins or History of unexplained or recurrent spontaneous Oral contraceptives or hormone replacement Sepsis (< 1 month) Serious lung disease, including pneumonia (< 1 month) Abnormal pulmonary function Acute myocardial infarction Congestive heart failure (< 1 month) History of inflammatory bowel disease Medical patient at bed rest Age 61-74 Arthroscopic surgery Major open surgery (> 45 min) Laparoscopic surgery (> 45 min) Malignancy Confined to bed (> 72 hours) Immobilizing plaster cast Central venous access Age >= 75 History of VTE Family history of VTE Factor V Leiden Prothrombin [id number] Lupus anticoagulant Anticardiolipin antibodies Elevated serum homocysteine Heparin-induced thrombocytopenia Other congenital or acquired thrombophilia Stroke (< 1 month) Elective arthroplasty Hip, pelvis, or leg fracture Acute spinal cord injury (< 1 month) Prophylaxis Regimen Total Risk Factor Score Risk Level Prophylaxis Regimen 0-1 Low Early ambulation 2 Moderate Order ONE of the following: *Sequential Compression Device (SCD) *Heparin 5000 units SQ BID 3-4 Higher Order ONE of the following medications: *Heparin 5000 units SQ TID *Enoxaparin/Lovenox 40 mg SQ daily (WT < 150 kg, CrCl > 30 mL/min) *Enoxaparin/Lovenox 30 mg SQ daily (WT < 150 kg, CrCl > 10-29 mL/min) *Enoxaparin/Lovenox 30 mg SQ BID (WT < 150 kg, CrCl > 30 mL/min) AND/OR *Sequential Compression Device (SCD) 5 or more Highest Order ONE of the following medications: *Heparin 5000 units SQ TID (Preferred with Epidurals) *Enoxaparin/Lovenox 40 mg SQ daily (WT < 150 kg, CrCl > 30 mL/min) *Enoxaparin/Lovenox 30 mg SQ daily (WT < 150 kg, CrCl > 10-29 mL/min) *Enoxaparin/Lovenox 30 mg SQ BID (WT < 150 kg, CrCl > 30 mL/min) AND *Sequential Compression Device (SCD) Assessment and Plan Assessment and Plan 32-year-old white male with a past medical history of IV drug abuse and hepatitis C presenting with a left upper lateral arm abscess and cellulitis. He is being admitted to our inpatient service. attempted to drain some pus in the ED and sent a culture but pt had low pain tolerance so stopped Problem List: (1) Cellulitis of left arm ICD Codes: L03.114 - Cellulitis of left upper limb Status: Acute Plan: Patient with left upper lateral arm abscess of 2 days' duration after injecting heroin. Afebrile upon admission, but tachycardic to the 110s. Leukocytosis neutrophil predominate to 13.0. ESR elevated at 63. Soft tissue ultrasound on admission, 02/28, shows 4.2 x 3.8 x 3.9 cm subcutaneous abscess in the left lateral mid humerus. Wound culture pending Blood culture pending UDS positive for opiates, amphetamines, benzodiazepines, and cocaine Patient given a dose of vancomycin 1000 mg in the ED -Will continue vancomycin at 1500 mg every 12 hours IV Patient given a dose of Zosyn 3.375 g IV in the ED -Will continue Zosyn 3.375 g IV every 6 hours General surgery consulted, appreciate recommendations -had I&D, and wound VAC Wound care consulted and appreciate recommendations (2) Abscess of arm, left ICD Codes: L02.414 - Cutaneous abscess of left upper limb Status: Acute Plan: See above plan (3) Hepatitis C ICD Codes: B19.20 - Unspecified viral hepatitis C without hepatic coma Status: Chronic Plan: Patient admits to past medical history of hepatitis C. AST, ALT, alkaline phosphatase elevated upon admission, 02/28. Will continue to monitor (4) FEN Status: Acute Plan: Fluids: NS @ 100ml/hr Electrolytes: monitor and replete as needed Nutrition: N.p.o. DVT Prophylaxis: Early ambulation. Lovenox 40mg subQ q24hr GI Prophylaxis: None indicated at this time Pain management: he likely has a low pain tolerance due to IV drug abuse. Percocet 10-325 mg. also morphine 6 mg iv q 4h prn. Will adjust as needed Physician Certification 2 Midnight Certification Type: Admission for Inpatient Services Order for Inpatient Services The services are ordered in accordance with Medicare regulations or non- Medicare payer requirements, as applicable. In the case of services not specified as inpatient-only, they are appropriately provided as inpatient services in accordance with the 2-midnight benchmark. Estimated LOS (days): 3 days is the estimated time the patient will need to remain in the hospital, assuming treatment plan goals are met and no additional complications. Post-Hospital Plan: Home Problem Qualifiers (1) Hepatitis C: Qualified Codes: B19.20 - Unspecified viral hepatitis C without hepatic coma Niecy Soto MD Mar 01, 2018 09:21
[2018-03-01] MEDS ORDERED: cloNIDine HCL 0.1 MG TAB PO PRN (09:30)
[2018-03-01] MEDS: SODIUM CHLOR 0.9% 1000 ML INJ 1,000 ML IV SCH ×2 (09:59→19:42)
[2018-03-01] MEDS ORDERED: MAGNESIUM HYDROXIDE SUSP 30 ML CUP PO PRN (10:15)
[2018-03-01] MEDS ORDERED: ONDANSETRON HCL 4 MG/2 ML VIAL IV PUSH PRN (10:15)
[2018-03-01] MEDS: POLYETHYLENE GLYCOL 17 GM PKG PO SCH (11:13)
[2018-03-01 12:00] VITALS: BP 134/70; PULSE 88; RESP 18; TEMP 97.3; O2SAT 96
[2018-03-01] MEDS: DIPHENOXYLATE/ATROPINE 2.5 MG/0.025 MG/5 ML CUP PO SCH ×2 (13:03→17:34)
[2018-03-01] MEDS: ENOXAPARIN SODIUM 40 MG/0.4 ML SYRINGE SQ SCH (13:24)
[2018-03-01] MEDS: NAPROXEN 500 MG TAB PO SCH ×2 (15:57→19:41)
[2018-03-01 16:00] VITALS: BP 122/68; PULSE 91; RESP 18; TEMP 97.5; O2SAT 96
[2018-03-01 18:18] VITALS: O2SAT 96
[2018-03-01 20:00] VITALS: BP 122/78; PULSE 93; RESP 18; TEMP 97.2; O2SAT 94
[2018-03-02] VITALS: BP 128/72; PULSE 79; RESP 17; TEMP 98.6; O2SAT 95
[2018-03-02] MEDS: PIPERACIL-TAZO 3.375 GM PREMIX 50 ML IV SCH ×3 (02:00→13:15)
[2018-03-02] MEDS ORDERED: PHARMACY ORDERED LAB ONE (03:45)
[2018-03-02] MEDS: VANCOMYCIN INJ 1,500 MG in SODIUM CHLORID 0.9% 500 ML INJ 500 ML IV SCH ×2 (04:00→15:03)
[2018-03-02] MEDS: SODIUM CHLOR 0.9% 1000 ML INJ 1,000 ML IV SCH ×2 (06:00→15:02)
[2018-03-02] MEDS: DIPHENOXYLATE/ATROPINE 2.5 MG/0.025 MG/5 ML CUP PO SCH ×3 (06:00→12:00)
[2018-03-02 08:00] VITALS: BP 114/61; PULSE 56; RESP 19; TEMP 97.8; O2SAT 95
[2018-03-02 08:48] LABS: AUTOMATED NEUTROPHIL # 10.8 TH/MM3 (1.8-7.7); BASOPHIL % 0.1 % (0.0-2.0); EOSINOPHIL % 0.3 % (0.0-4.0); HEMATOCRIT 34.7 % (39.0-51.0); HEMOGLOBIN 11.7 GM/DL (13.0-17.0); LYMPH % 14.4 % (9.0-44.0); MEAN CELL VOLUME 87.5 FL (80.0-100.0); MEAN CORPUSCULAR HEMOGLOBIN 29.7 PG (27.0-34.0); MEAN CORPUSCULAR HGB CONC 33.9 % (32.0-36.0); MONO % 6.8 % (0.0-8.0); MONOCYTE # 0.9 TH/MM3 (0-0.9); NEUT % 78.4 % (16.0-70.0); PLATELET COUNT 227 TH/MM3 (150-450); RED BLOOD COUNT 3.96 MIL/MM3 (4.50-5.90); RED CELL DISTRIBUTION WIDTH 13.5 % (11.6-17.2); WHITE BLOOD COUNT 13.8 TH/MM3 (4.0-11.0)
[2018-03-02] MEDS: POLYETHYLENE GLYCOL 17 GM PKG PO SCH (09:00)
[2018-03-02 09:15] LABS: ALBUMIN 3.1 GM/DL (3.4-5.0); ALT (GPT) 75 U/L (12-78); BICARBONATE 25.4 MEQ/L (21.0-32.0); BLOOD UREA NITROGEN 12 MG/DL (7-18); CHLORIDE 106 MEQ/L (98-107); GLUCOSE,RANDOM 101 MG/DL (74-106); SODIUM (NA) 138 MEQ/L (136-145)
[2018-03-02 09:21] LABS: ALKALINE PHOSPHATASE 181 U/L (45-117); AST (GOT) 47 U/L (15-37); CALCIUM 8.6 MG/DL (8.5-10.1); CREATININE 0.89 MG/DL (0.60-1.30); GLOMERULAR FILTRATION RATE 99 ML/MIN (>89); TOTAL BILIRUBIN ADULT 0.3 MG/DL (0.2-1.0)
--- NOTE | 2018-03-02 10:18 | HHI.PR ---
Subjective Subjective Notes Resting in bed Objective Vitals/I&O Vital Signs Date Time Temp Pulse Resp B/P (MAP) Pulse Ox O2 Delivery O2 Flow Rate FiO2 03/02/18 08:00 97.8 56 19 114/61 (78) 95 03/01/18 18:18 21 02/28/18 21:25 Nasal Cannula 2 Labs Laboratory Tests Test 03/02/18 07:32 White Blood Count 13.8 Red Blood Count 3.96 Hemoglobin 11.7 Hematocrit 34.7 Mean Corpuscular Volume 87.5 Mean Corpuscular Hemoglobin 29.7 Mean Corpuscular Hemoglobin Concent 33.9 Red Cell Distribution Width 13.5 Platelet Count 227 Mean Platelet Volume 8.0 Neutrophils (%) (Auto) 78.4 Lymphocytes (%) (Auto) 14.4 Monocytes (%) (Auto) 6.8 Eosinophils (%) (Auto) 0.3 Basophils (%) (Auto) 0.1 Neutrophils # (Auto) 10.8 Lymphocytes # (Auto) 2.0 Monocytes # (Auto) 0.9 Eosinophils # (Auto) 0.0 Basophils # (Auto) 0.0 CBC Comment DIFF FINAL Differential Comment Blood Urea Nitrogen 12 Creatinine 0.89 Random Glucose 101 Total Protein 8.0 Albumin 3.1 Calcium Level 8.6 Alkaline Phosphatase 181 Aspartate Amino Transf (AST/SGOT) 47 Alanine Aminotransferase (ALT/SGPT) 75 Total Bilirubin 0.3 Sodium Level 138 Potassium Level 4.0 Chloride Level 106 Carbon Dioxide Level 25.4 Anion Gap 7 Estimat Glomerular Filtration Rate 99 Date/Time Source Procedure Growth Status 02/28/18 06:57 Blood Peripheral Aerobic Blood Culture - Preliminary NO GROWTH IN 1 DAY Resulted 02/28/18 06:57 Blood Peripheral Anaerobic Blood Culture - Preliminary NO GROWTH IN 1 DAY Resulted 02/28/18 20:27 Wound Arm Gram Stain - Final Complete 02/28/18 20:27 Wound Culture - Final Viridans Streptococcus Grp Complete Radiology Last 48 hours Impressions Chest X-Ray 02/28/18 0648 Signed Impressions: Service Date/Time: Wednesday, February 28, 2018 07:12 - CONCLUSION: 1. No acute abnormality or significant interval change. Calixto Plascencia MD Soft Tissue Ultrasound 02/28/18 0000 Signed Impressions: Service Date/Time: Wednesday, February 28, 2018 07:49 - CONCLUSION: 1. 4.2 x 3.8 x 3.9 cm subcutaneous abscess in the left lateral mid humerus. 1. Calixto Plascencia MD Cardiovascular: Regular Lungs: Clear Abdomen: Non-distended, Non-tender Extremities: Other (see below ) Narrative Exam LEFT arm ---- Wound Vac in place with good seal; decreased amount of induration A/P Assessment and Plan 32 year old male POD2 I&D LEFT upper arm and Wound Vac placement -Will plan for bedside dressing change of Wound Vac tomorrow and then follow MWF -Continue antibiotics -DC IVF -Discussed with RN Jenny and Nurse Heater Operator Helper Marlene ---Patient was difficult to arouse -Patient is discussing leaving AMA--- if this is the case please remove Wound Vac and replace with wet to dry dressing Attending Statement I personally evaluated the patient at his bedside. When I arrived at the patient's bedside he was up getting ready to get in the bathroom. He is caring his VAC machine in his hand. He was very angry. Apparently he felt like nursing was questioning why he was slurring his words and lisping when he talked and he got on his phone and FaceTime with his father who admitted the patient commonly slurred his words and lisped. On evaluation of his left upper extremity there was only faint residual erythema and minimal residual induration. The VAC was intact and this was evidence of significant resolution of the cellulitis and abscess of the left upper extremity. The patient made it very clear he wanted to leave the hospital. Our plan was to facilitate this by removing the back VAC dressing and placing a normal saline wet-to-dry dressing. Additionally he would be provided with oral antibiotics appropriate for his likely MRSA infection. I discussed with him I would be happy to see him in my office in 2 weeks to ensure the wound is continuing to heal well. The exam, history, and the medical decision-making described in the above note were completed with the assistance of the mid-level provider. I reviewed and agree with the findings presented. I attest that I had a [id number] encounter with the patient on the same day, and personally performed and documented my assessment and findings in the medical record. Renea Palacios/First Aida BROOKS Mar 02, 2018 10:18 Jc Hernandez MD Mar 03, 2018 09:06
[2018-03-02] MEDS: SODIUM CHLORIDE 0.9% FLUSH 10 ML FLUSH IV FLUSH SCH (11:03)
[2018-03-02] MEDS: NAPROXEN 500 MG TAB PO SCH (11:04)
[2018-03-02] MEDS ORDERED: BACT800T5 PO (12:24)
--- NOTE | 2018-03-02 12:26 | HHI.FPPN ---
Subjective Remarks Patient seen and examined this morning. Remains afebrile, vitals stable. Patient is resting in bed, difficult to keep awake. Patient is not able to answer most questions secondary to his drowsiness. Does answer some questions appropriately with yes or no answers. Overnight patient lost IV access. Vascular access team consulted for IV placement. Patient denies chest pain or pain elsewhere. (Papito Camarena MD R2) Objective Vitals Vital Signs Date Time Temp Pulse Resp B/P (MAP) Pulse Ox O2 Delivery O2 Flow Rate FiO2 03/02/18 08:00 97.8 56 19 114/61 (78) 95 03/02/18 00:00 98.6 79 17 128/72 (90) 95 03/01/18 20:41 17 03/01/18 20:00 97.2 93 18 122/78 (93) 94 03/01/18 18:18 96 21 03/01/18 16:00 97.5 91 18 122/68 (86) 96 I/O 03/01/18 03/01/18 03/01/18 03/02/18 03/02/18 03/02/18 06:59 14:59 22:59 06:59 14:59 22:59 Intake Total 855 ml 1285 ml 526 ml Output Total 50 ml Balance 855 ml 1285 ml 476 ml Intake Oral 240 ml 720 ml 240 ml IV Total 615 ml 565 ml 286 ml Drainage Total 50 ml # Voids 3 4 3 (Papito Camarena MD R2) Result Diagram: 03/02/18 0732 03/02/18 0732 Objective Remarks GENERAL: Lying in bed drowsy, NAD SKIN: Left upper lateral arm with resolving erythema and warmth compared to admission. Wound VAC in place. No pain elicited with mild to moderate palpation. HEAD: Atraumatic. Normocephalic. EYES: Eyes opened briefly. Extraocular motions intact. No scleral icterus. No injection or drainage. ENT: Nose without bleeding or purulent drainage. Airway patent. NECK: Trachea midline. No JVD or lymphadenopathy. Supple. CARDIOVASCULAR: Regular rate and rhythm without murmurs, gallops, or rubs. RESPIRATORY: Clear to auscultation. Breath sounds equal bilaterally. No wheezes , rales, or rhonchi. GASTROINTESTINAL: Abdomen soft, non-tender, nondistended. No hepato-splenomegaly , or palpable masses. No guarding. MUSCULOSKELETAL: Extremities without edema. No calf tenderness. NEUROLOGICAL: Is able to be aroused. Speech coherent. Cranial nerves grossly intact. Gross movements of all extremities. (Papito Camarena MD R2) A/P Assessment and Plan 32-year-old white male with a past medical history of IV drug abuse and hepatitis C admitted with a left upper lateral arm abscess and cellulitis. Discharge Planning Anticipate discharge home tomorrow pending further clinical resolution (Papito Camarena MD R2) Attending Attestation Patient seen and examined. Case reviewed and discussed with the resident team. Agree with plan of care as discussed with me and documented in the resident note. He is not taking his pain meds here and the suspicion is that he is still using heroine (Niecy Soto MD) Problem List: (1) Cellulitis of left arm ICD Codes: L03.114 - Cellulitis of left upper limb Status: Acute Plan: Patient with left upper lateral arm abscess of 2 days' duration after injecting heroin prior to admission. Soft tissue ultrasound on admission, 02/28, shows 4.2 x 3.8 x 3.9 cm subcutaneous abscess in the left lateral mid humerus. Wound culture growing viridans strep Blood culture no growth after two days UDS positive for opiates, amphetamines, benzodiazepines, and cocaine Continue vancomycin 1500 mg IV q12h, pharmacy consulted Continue Zosyn 3.375 g IV q6h General surgery consulted, appreciate recommendations - s/p I&D and wound vac placement Wound care consulted (2) Abscess of arm, left ICD Codes: L02.414 - Cutaneous abscess of left upper limb Status: Acute Plan: Plan as above (3) Hepatitis C ICD Codes: B19.20 - Unspecified viral hepatitis C without hepatic coma Status: Chronic Plan: Patient admits to past medical history of hepatitis C. AST, ALT, alkaline phosphatase elevated upon admission, 02/28. Will continue to monitor (4) FEN Status: Acute Plan: Fluids: NS @ 100ml/hr Electrolytes: monitor and replete as needed Nutrition: Regular DVT Prophylaxis: Lovenox 40mg sq q24h GI Prophylaxis: None indicated at this time Pain management: he likely has a low pain tolerance due to IV drug abuse. Percocet 10-325 mg. also morphine 6 mg iv q 4h prn. Will adjust as needed (Papito Camarena MD R2) Problem Qualifiers (1) Hepatitis C: Qualified Codes: B19.20 - Unspecified viral hepatitis C without hepatic coma Papito Camarena MD R2 Mar 02, 2018 12:26 Niecy Soto MD Mar 05, 2018 08:57
[2018-03-02] MEDS: ENOXAPARIN SODIUM 40 MG/0.4 ML SYRINGE SQ SCH (15:02)
--- NOTE | 2018-03-02 16:57 | PD.AMA ---
Against Medical Advice Note Discharge Disposition: Against Medical Advice AMA Statement Patient Jc Redman has decided to leave the hospital against medical advice. This patient has the capacity to refuse care and understands the risks of leaving, including permanent disability and/or , and has had an opportunity to ask questions about his condition. Follow up has been arranged/ advised with general surgery after hospital discharge. The resident family practice service will not accept this patient if re- admitted for the same medical problems managed during this current admission. Papito Camarena MD R2 Mar 02, 2018 16:57
== END 2018-03-02 15:48 | disposition left against medical advice (07) | DRG 603 ==
LOC: NEPE 06:13 → NEDA 10:13 → N07A 16:40
PROVIDERS: ADMIT Family Medicine; ATTEND Family Medicine
PROC: 0HDEXZZ Extraction of Left Lower Arm Skin, External Approach (ICD-10-PCS; 2018-02-28)
PROC: 0HBEXZZ Excision of Left Lower Arm Skin, External Approach (ICD-10-PCS; principal; 2018-02-28 19:49)
DX: L02.414 Cutaneous abscess of left upper limb (principal); B19.20 Unspecified viral hepatitis C without hepatic coma; F17.210 Nicotine dependence, cigarettes, uncomplicated; L03.114 Cellulitis of left upper limb; F11.90 Opioid use, unspecified, uncomplicated; F15.90 Other stimulant use, unspecified, uncomplicated; F19.10 Other psychoactive substance abuse, uncomplicated; R00.0 Tachycardia, unspecified
CPT/HCPCS: 71045; 76937; 76999; 80053; 80202; 80307; 81001; 82550; 82552; 83605; 83735; 84484; 85025; 85610; 85652; 85730; 87040; 87070; 87205; 93005; 96365; 96367; J0330; J1100; J1650; J2405; J2543; J3010; J3370; J7030; J7040; J7050